=== PATIENT | female | born 1965 | race Caucasian/White ===

== ENCOUNTER 2017-04-03 17:22 | Emergency (ER) | payer OTHER ==
[~2017-04-03] VITALS: Ht 170.2 cm; Wt 74.0 kg
[~2017-04-03 17:22] MED LIST: APIX5TAB PO; HYDR-3535 PO
[2017-04-03] MEDS ORDERED: IOHEXOL 350 MG/ML 10 ML VIAL (for RAD DIAG) IVCONTRAST ONE (17:23)
--- NOTE | 2017-04-03 17:30 | PD ---
Physical Exam Date Seen by Provider: Apr 03, 2017 Time Seen by Provider: 17:29 Narrative 52- year old female presents with dizziness, shoulder pain, and history of blood clots. The patient was sent by her manual plate filler Dr. Grijalva. The patient currently has an IVC filter in place. Patient reports that she took Coumadin today. However, she is not on prescription blood thinners daily. She is awaiting bed placement. [facility] Medical Record Reviewed: Yes Supervised Visit with KELSIE: No Condition: Stable Loren Hackett Apr 03, 2017 17:30
[2017-04-03] MEDS ORDERED: PRED1 PO (17:55)
[2017-04-03] MEDS ORDERED: LORA-373 PO (17:55)
[2017-04-03] MEDS ORDERED: OXYC-395 PO (17:55)
[2017-04-03] MEDS ORDERED: ASPI81CH37 CHEW (17:55)
--- NOTE | 2017-04-03 18:06 | PD ---
HPI Chief Complaint: Respiratory Distress Time Seen by Provider: 17:39 Travel History International Travel<30 days: No Contact w/Intl Traveler<30days: No Traveled to known affect area: No History of Present Illness HPI This is a 52-year-old female with fibromyalgia presents complaining of multiple things. He complains of pain in the back of both legs. She is worried about having blood clot. 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 She has been off blood thinners for approximately one and a half years. She also complains of some abdominal bloating and lightheadedness and vertigo sensation when walking. She also complains of feeling euphoric. She takes both Ativan and hydrocodone on an as-needed basis. she has chronic knee pain. No acute injury or fever. She had shortness of breath earlier. No productive cough. No chest pain. She says that her park interpretive specialist sent here to rule out blood clot. She has an IVC filter. PFSH Past Medical History Arthritis: No Asthma: No Autoimmune Disease: No Blood Disorders: No Heart Rhythm Problems: No Cancer: No Cardiovascular Problems: No High Cholesterol: No Chemotherapy: No Chest Pain: No Congestive Heart Failure: No COPD: No Cerebrovascular Accident: Yes (TIA) Diabetes: No Diminished Hearing: No Deep Vein Thrombosis: Yes (BILATERAL) Endocrine: No Fibromyalgia: Yes GERD: No Glaucoma: No Genitourinary: No Headaches: Yes Hepatitis: No Hiatal Hernia: No Hypertension: No Kidney Stones: No Musculoskeletal: No Neurologic: No Psychiatric: No Reproductive: No Respiratory: No Migraines: Yes Myocardial Infarction: No Radiation Therapy: No Renal Failure: No Seizures: No Sleep Apnea: No Thyroid Disease: No Ulcer: No PNEUMOCCOCAL Vaccine (Year): 2 ?: Not Past Surgical History Abdominal Surgery: Yes (L INGUINAL HERNIA) AICD: No Body Medical Devices: IVC FILTER Ear Surgery: No Endocrine Surgery: No Eye Surgery: No Genitourinary Surgery: Yes (RETRACTABLE UMBRELLA FILTER AT RENAL ARTERY) Gynecologic Surgery: No Neurologic Surgery: No Oral Surgery: No Pacemaker: No Thoracic Surgery: No Other Surgery: Yes Social History Alcohol Use: No Tobacco Use: No Substance Use: No Allergies-Medications (Allergen,Severity, Reaction): Coded Allergies: meperidine (Unverified Allergy, Intermediate, NAUSEA,ITCHING, 04/03/17) morphine (Unverified Allergy, Intermediate, EXTREME ITCHING, 04/03/17) Reported Meds & Prescriptions Reported Meds & Active Scripts Active Reported Aspirin Low Dose (Aspirin) 81 Mg Chew 81 Mg CHEW DAILY Oxycodone (Oxycodone HCl) 10 Mg Tab 10 Mg PO Q6H PRN Prednisone 1 Mg Tab 4 Mg PO DAILY Lorazepam 0.5 Mg Tab 0.5 Mg PO BID Review of Systems General / Constitutional: No: Fever Eyes: No: Visual changes HENT: Positive: Vertigo, Lightheadedness, No: Headaches Cardiovascular: No: Chest Pain or Discomfort Respiratory: Positive: Shortness of Breath Gastrointestinal: Positive: Abdominal Pain Genitourinary: No: Dysuria Musculoskeletal: Positive: Myalgias, Arthralgias, Pain Skin: No Rash Neurologic: Positive: Dizziness, No: Weakness Psychiatric: No: Depression Endocrine: No: Polydipsia Hematologic/Lymphatic: No: Easy Bruising Physical Exam Narrative GENERAL: Well-nourished, well-developed patient in no apparent distress. SKIN: Focused skin assessment reveals no rash and nodules. Skin is Warm and dry. HEAD: Atraumatic. Normocephalic. EYES: Pupils equal and round. No scleral icterus. No injection or drainage. ENT: No nasal bleeding or discharge. Mucous membranes pink and moist. NECK: Trachea midline. No JVD. CARDIOVASCULAR: Regular rate and rhythm. No murmur appreciated. RESPIRATORY: No accessory muscle use. Clear to auscultation. Breath sounds equal bilaterally. GASTROINTESTINAL: Abdomen soft, non-tender, nondistended. Hepatic and splenic margins not palpable. MUSCULOSKELETAL: No obvious deformities. No clubbing. No cyanosis. No edema. No erythema warmth or swelling or tenderness of the legs NEUROLOGICAL: Awake and alert. No obvious cranial nerve deficits. Motor grossly within normal limits. Normal speech. PSYCHIATRIC: Appropriate mood and affect; insight and judgment normal. Data Data Last Documented VS Vital Signs Date Time Temp Pulse Resp B/P (MAP) Pulse Ox O2 Delivery O2 Flow Rate FiO2 04/03/17 18:00 74 18 98 Room Air Orders Orders Iv Access Insert/Monitor (04/03/17 18:42) Complete Blood Count With Diff (04/03/17 18:42) Comprehensive Metabolic Panel (04/03/17 18:42) Chest, Single Ap (04/03/17 ) Us Arm Venous Doppler Bilat (04/03/17 ) MDM Medical Decision Making Medical Screen Exam Complete: Yes Emergency Medical Condition: Yes Medical Record Reviewed: Yes Differential Diagnosis DVT, fibromyalgia pain, myalgias, anxiety Narrative Course I have reviewed the patient's electronic medical record. Patient was seen here last year for DVT. I've ordered a workup to include lab studies and a chest x-ray and bilateral Doppler of the lower extremities to evaluate for DVT I have very low clinical suspicion of PE. She is not short of breath now and has an IVC filter in place as well as no chest pain or pleuritic symptoms. No tachycardia. Case will be signed out to Dr. Guillen to assist with disposition after workup complete Albert Fuller MD Apr 03, 2017 18:06
[2017-04-03 19:01] LABS: AUTOMATED NEUTROPHIL # 3.9 TH/MM3 (1.8-7.7); BASOPHIL % 0.7 % (0.0-2.0); EOSINOPHIL # 0.2 TH/MM3 (0-0.4); EOSINOPHIL % 2.6 % (0.0-4.0); HEMATOCRIT 39.9 % (35.0-46.0); HEMO FLAGS DIFF FINAL; LYMPH % 31.4 % (9.0-44.0); LYMPHOCYTE # 2.2 TH/MM3 (1.0-4.8); MEAN CELL VOLUME 81.7 FL (80.0-100.0); MEAN CORPUSCULAR HEMOGLOBIN 26.4 PG (27.0-34.0); MEAN CORPUSCULAR HGB CONC 32.4 % (32.0-36.0); MONO % 9.9 % (0.0-8.0); NEUT % 55.4 % (16.0-70.0); PLATELET COUNT 250 TH/MM3 (150-450); RED BLOOD COUNT 4.88 MIL/MM3 (4.00-5.30); WHITE BLOOD COUNT 7.1 TH/MM3 (4.0-11.0)
--- NOTE | 2017-04-03 19:09 | RADRPT ---
EXAM DATE/TIME: 04/03/2017 19:02 [facility] COMPARISON: CHEST PA & LAT, November 23, 2015, 15:54. INDICATIONS : Patient short of breath with strong history of pulmonary embolis and deep venous thrombosis. MEDICAL HISTORY : Deep venous thrombosis. Deep venous thrombosis. SURGICAL HISTORY : None. ENCOUNTER: Initial ACUITY: 1 day PAIN SCORE: 0/10 LOCATION: Bilateral upper chest FINDINGS: A single view of the chest demonstrates the lungs to be symmetrically aerated without evidence of mas s, infiltrate or effusion. The cardiomediastinal contours are unremarkable. Osseous structures are intact. CONCLUSION: No evidence of acute cardiopulmonary disease. Uri Medeiros MD on April 03, 2017 at 19:07 Board Certified Radiologist. This report was verified electronically.
[2017-04-03 19:17] LABS: ANION GAP 7 MEQ/L (5-15); AST (GOT) 26 U/L (15-37); BICARBONATE 26.6 MEQ/L (21.0-32.0); BLOOD UREA NITROGEN 7 MG/DL (7-18); CHLORIDE 104 MEQ/L (98-107); GLOMERULAR FILTRATION RATE 87 ML/MIN (>89); POTASSIUM 3.6 MEQ/L (3.5-5.1); SODIUM (NA) 138 MEQ/L (136-145)
[2017-04-03 19:18] LABS: ALT (GPT) 22 U/L (10-53)
[2017-04-03 19:20] LABS: ALKALINE PHOSPHATASE 60 U/L (45-117); TOTAL BILIRUBIN ADULT 0.4 MG/DL (0.2-1.0)
--- NOTE | 2017-04-03 19:34 | PD ---
Physical Exam Narrative Patient was immediately physician and signed out to me. 52-year-old female with history of DVT and PE complains of generalized malaise and shortness of breath and dizziness and bilateral lower extremity pain. Patient started having shortest of breath and dyspnea on exertion for the past 5 days. Patient denies any coughing congestion fever chills. Patient states that she had intermittent dizziness and generalized malaise and fatigue. Patient states that she has a short period of time with left upper back pain around the shoulder blade this evening. Patient states that the upper back pain resolved completely after short period of time. Patient denies any upper back or chest pain now. Patient states that she was hit behind the right leg around the popliteal area about 2 weeks ago. Patient had some small bruising around that area since then resolved completely. Patient complains of bilateral extremity pain since last night. Patient states the pain aching pain localized behind the thigh bilaterally and the right lower leg. Patient was on Coumadin however she took several of Coumadin since January of last year. Patient was on Eliquis for a short period of time however Eliquis was stopped because patient had frequent fall. Patient on aspirin 81 mg daily. Patient took Coumadin 6 mg once today. Patient contacted her physician Dr. Romero was advised to go to ED for workup to rule out DVT and PE. Patient has IVC filter in place. Physical exam reveals mild tenderness on palpation bilateral posterior thigh area and right calf Area. No redness no heat noted. Full range of motion all extremity. Negative Homans sign. Patient has no tenderness on palpation of the back area. Data Data Last Documented VS Vital Signs Date Time Temp Pulse Resp B/P (MAP) Pulse Ox O2 Delivery O2 Flow Rate FiO2 04/03/17 21:01 72 18 116/74 (88) 98 04/03/17 18:00 Room Air Orders Orders Iv Access Insert/Monitor (04/03/17 18:42) Complete Blood Count With Diff (04/03/17 18:42) Comprehensive Metabolic Panel (04/03/17 18:42) Chest, Single Ap (04/03/17 ) Ct Pulmonary Angiogram (04/03/17 19:27) Us Leg Venous Doppler Bilat (04/03/17 19:27) Iohexol 350 Inj (Omnipaque 350 Inj) (04/03/17 17:23) Labs Laboratory Tests Test 04/03/17 18:55 White Blood Count 7.1 TH/MM3 Red Blood Count 4.88 MIL/MM3 Hemoglobin 12.9 GM/DL Hematocrit 39.9 % Mean Corpuscular Volume 81.7 FL Mean Corpuscular Hemoglobin 26.4 PG Mean Corpuscular Hemoglobin Concent 32.4 % Red Cell Distribution Width 15.0 % Platelet Count 250 TH/MM3 Mean Platelet Volume 8.7 FL Neutrophils (%) (Auto) 55.4 % Lymphocytes (%) (Auto) 31.4 % Monocytes (%) (Auto) 9.9 % Eosinophils (%) (Auto) 2.6 % Basophils (%) (Auto) 0.7 % Neutrophils # (Auto) 3.9 TH/MM3 Lymphocytes # (Auto) 2.2 TH/MM3 Monocytes # (Auto) 0.7 TH/MM3 Eosinophils # (Auto) 0.2 TH/MM3 Basophils # (Auto) 0.0 TH/MM3 CBC Comment DIFF FINAL Differential Comment Blood Urea Nitrogen 7 MG/DL Creatinine 0.71 MG/DL Random Glucose 80 MG/DL Total Protein 7.3 GM/DL Albumin 3.7 GM/DL Calcium Level 8.5 MG/DL Alkaline Phosphatase 60 U/L Aspartate Amino Transf (AST/SGOT) 26 U/L Alanine Aminotransferase (ALT/SGPT) 22 U/L Total Bilirubin 0.4 MG/DL Sodium Level 138 MEQ/L Potassium Level 3.6 MEQ/L Chloride Level 104 MEQ/L Carbon Dioxide Level 26.6 MEQ/L Anion Gap 7 MEQ/L Estimat Glomerular Filtration Rate 87 ML/MIN [facility] Supervised Visit with KELSIE: No Interpretation(s) Last Impressions Chest X-Ray 04/03/17 0000 Signed Impressions: Service Date/Time: Monday, April 03, 2017 19:02 - CONCLUSION: No evidence of acute cardiopulmonary disease. Uri Medeiros MD 21:[address] pulmonary angiogram negative for PE. Doppler study lower extremity negative for DVT. CBC within normal limit. CMP within normal limit. Differential Diagnosis Differential diagnosis including DVT, PE, musculoskeletal, bronchitis, pneumonia , pneumothorax, electrolyte abnormality, dehydration. Narrative Course 52-year-old female with shortness of breath, dyspnea on exertion and bilateral posterior mid the pain. History of DVT and PE. Diagnosis Primary Impression: Muscle strain, lower leg Qualified Codes: S86.919A - Strain of unspecified muscle(s) and tendon(s) at lower leg level, unspecified leg, initial encounter Additional Impression: Dyspnea Qualified Codes: R06.09 - Other forms of dyspnea Patient Instructions: General Instructions Additional Instruction: Continue with all medications. Tylenol for pain. Follow-up with personal physician. Return if worse. Med/Other Pt SpecificInfo: No Change to Meds Disposition: 01 DISCHARGE HOME Condition: Stable Jose R Guillen MD Apr 03, 2017 19:34
[2017-04-03 20:18] VITALS: PULSE 68; RESP 18; O2SAT 98
--- NOTE | 2017-04-03 20:19 | RADRPT ---
EXAM DATE/TIME: 04/03/2017 19:50 [facility] COMPARISON: No previous studies available for comparison. INDICATIONS : Left shoulder blade pain, shortness of breath, dizziness. IV CONTRAST: 75 cc Omnipaque 350 (iohexol) IV RADIATION DOSE: 23.05 CTDIvol (mGy) MEDICAL HISTORY : Cerebrovascular disease. Previous PE, DVT SURGICAL HISTORY : Inguinal hernia repair. Renal artery filter.Back surgery ENCOUNTER: Initial ACUITY: 1 day PAIN SCALE: 6/10 LOCATION: Left chest posterior. TECHNIQUE: Volumetric scanning of the chest was performed using a pulmonary embolism protocol MIP images were re constructed. Using automated exposure control and adjustment of the mA and/or kV according to patien t size, radiation dose was kept as low as reasonably achievable to obtain optimal diagnostic quality images. DICOM format image data is available electronically for review and comparison. Follow-up recommendations for detected pulmonary nodules are based at a minimum on nodule size and pa tient risk factors according to Fleischner Society Guidelines. FINDINGS: PULMONARY ARTERIES: No filling defects are seen in the pulmonary arteries through the segmental level. LUNGS: Trace atelectasis seen of the lung bases PLEURAE: There is no pleural thickening or pleural effusion. MEDIASTINUM: There is good visualization of the great vessels of the middle mediastinum. No evidence of mediastin al or hilar adenopathy/mass. MUSCULOSKELETAL: Within normal limits for patient age. MISCELLANEOUS: The visualized upper abdominal organs demonstrate no acute abnormality. CONCLUSION: No pulmonary embolus. Trace bibasilar atelectasis. Uri Medeiros MD on April 03, 2017 at 20:16 Board Certified Radiologist. This report was verified electronically.
--- NOTE | 2017-04-03 20:43 | RADRPT ---
EXAM DATE/TIME: 04/03/2017 20:07 [facility] COMPARISON: No previous studies available for comparison. INDICATIONS : Bilateral leg swelling. MEDICAL HISTORY : Stroke. Glasses. Headache. Migraine. Deep vein thrombosis. Fibromyalgia. Pulmonary embolism. SURGICAL HISTORY : Inguinal hernia repair. Bilateral knee surgery. ENCOUNTER: Subsequent ACUITY: 1 day PAIN SCORE: 3/10 LOCATION: Bilateral legs. TECHNIQUE: Venous ultrasound of the left and right leg was performed from the inguinal ligament to the proximal calf. Real-time, color Doppler and spectral tracing, compression and augmentation techniques were us ed. FINDINGS: RIGHT LEG: There is normal compressibility of the deep venous system from the inguinal region to the proximal ca lf. No echogenic clot is seen in the lumen of the common femoral, femoral, popliteal, and posterior tibial veins. There is a normal response of the venous system to proximal and distal augmentation an d respiration. LEFT LEG: There is normal compressibility of the deep venous system from the inguinal region to the proximal ca lf. No echogenic clot is seen in the lumen of the common femoral, femoral, popliteal, and posterior tibial veins. There is a normal response of the venous system to proximal and distal augmentation an d respiration. CONCLUSION: No DVT of either lower extremity. Uri Medeiros MD on April 03, 2017 at 20:41 Board Certified Radiologist. This report was verified electronically.
[2017-04-03 21:01] VITALS: BP 116/74; PULSE 72; RESP 18; O2SAT 98
== END 2017-04-03 21:26 | disposition home or self-care (01) ==
LOC: NEPC 17:22
DX: S86.912A Strain of unspecified muscle(s) and tendon(s) at lower leg level, left leg, initial encounter (principal); S86.911A Strain of unspecified muscle(s) and tendon(s) at lower leg level, right leg, initial encounter; R06.09 Other forms of dyspnea; R53.81 Other malaise; R06.02 Shortness of breath; R42 Dizziness and giddiness; M54.9 Dorsalgia, unspecified; M79.7 Fibromyalgia; X58.XXXA Exposure to other specified factors, initial encounter
CPT/HCPCS: 71010; 71275; 80053; 85025; 93970; 99285; Q9967